=== PATIENT | female | born 1985 | race Caucasian/White ===

== ENCOUNTER 2018-01-25 21:49 | Emergency (ER) | payer MEDICAID ==
[2018-01-25] MEDS ORDERED: IBUPROFEN 600 MG TABLET PO ONE (22:15)
--- NOTE | 2018-01-25 22:20 | Emergency Department Record ---
History of Present Illness - General Chief complaint: Lower Extremity Pain Stated complaint: RT WRIST PAIN Time Seen by Provider: 01/25/18 22:14 Source: Patient Mode of Arrival: Ambulatory Limitations: No limitations - History of Present Illness Initial comments: 32 yo female presents to ED for evaluation of right wrist pain this evening as she "slammed her wrist down" on a hard surface. Patient reports pain, denies weakness, numbness, or tingling. Patient denies other injury, and denies health problems. MD Complaint: Joint pain Onset/Timin -: Minutes(s) Location: Right, Hand, Other History of Same: No Radiation: None Severity scale (1-10): 10 Quality: Aching Consistency: Constant Improves with: Nothing Worsens with: Exertion, Palpation Associated Symptoms: Denies other symptoms - Related Data Home Medications Medication Instructions Recorded Confirmed Last Taken No Home Med [NO HOME MEDS] 01/25/18 01/25/18 Unknown Allergies Allergy/AdvReac Type Severity Reaction Status Date / Time No Known Drug Allergies Allergy Verified 01/25/18 22:07 Travel Screening - Travel/Exposure Within Last 30 Days Have you traveled within the last 30 days?: No - Travel/Exposure Within Last Year Have you traveled outside the [place] in the last year?: No - Additonal Travel Details Have you been exposed to anyone with a communicable illness?: No - Travel Symptoms Symptom Screening: None Review of Systems Constitutional: Denies: Chills, Fever, Malaise, Night sweats Eyes: Denies: Eye discharge, Eye pain ENT: Denies: Congestion, Ear pain, Epistaxis Respiratory: Denies: Cough, Dyspnea Cardiovascular: Denies: Chest pain, Dyspnea on exertion Endocrine: Denies: Fatigue, Heat or cold intolerance Gastrointestinal: Denies: Abdominal pain, Nausea, Vomiting Genitourinary: Denies: Incontinence, Retention Musculoskeletal: Reports: Arthralgia, Joint swelling (Right wrist swelling). Denies: Back pain, Gout Skin: Denies: Bruising, Change in color Neurological: Denies: Abnormal gait, Confusion, Headache, Seizure Psychiatric: Denies: Anxiety Hematological/Lymphatic: Denies: Anemia, Blood Clots Past Medical History - SOCIAL HISTORY Smoking Status: Current every day smoker Alcohol Use: Occasional Drug Use: None - RESPIRATORY Hx Respiratory Disorders: No - CARDIOVASCULAR Hx Cardio Disorders: No - NEURO Hx Neuro Disorders: No - GI Hx GI Disorders: No - Hx Genitourinary Disorders: Yes Comment:: Bartholin cysts - ENDOCRINE Hx Endocrine Disorders: No - MUSCULOSKELETAL Hx Musculoskeletal Disorders: Yes Hx Back Injury: Yes - PSYCH Hx Psych Problems: No - HEMATOLOGY/ONCOLOGY Hx Hematology/Oncology Disorders: No Family Medical History Any Significant Family History?: No Hx Diabetes: Grandparents Hx Heart Disease: Mother, Grandparents Hx HTN: Grandparents Hx Kidney Disease: Mother Hx Stroke: Grandparents Physical Exam - General General Appearance: Alert, Oriented x3, Cooperative, Moderate distress Limitations: No limitations - Head Head exam: Atraumatic, Normocephalic, Normal inspection Head exam detail: negative: Abrasion, Contusion, Buenrostro's sign, General tenderness, Hematoma, Laceration - Eye Eye exam: Normal appearance. negative: Conjunctival injection, Periorbital swelling, Periorbital tenderness, Scleral icterus - ENT Ear exam: negative: Auricular hematoma, Auricular trauma Nasal Exam: negative: Active bleeding, Discharge, Dried blood, Foreign body Mouth exam: negative: Drooling, Laceration, Muffled voice, Tongue elevation - Neck Neck exam: Normal inspection. negative: Meningismus, Tenderness - Respiratory Respiratory exam: Normal lung sounds bilaterally. negative: Rales, Respiratory distress, Rhonchi, Stridor - Cardiovascular Cardiovascular Exam: Regular rate, Normal rhythm, Normal heart sounds Peripheral Pulses: 3+: Radial (R) - GI/Abdominal GI/Abdominal exam: Soft. negative: Rebound, Rigid, Tenderness - Rectal Rectal exam: Deferred - exam: Deferred - Extremities Extremities exam: Tenderness, Other (TTP with mild STS to the lateral right wrist, decreased ROM due to pain. Compartments of the forearm are soft on examination. FROM of the fingers distally.). negative: Calf tenderness, Pedal edema - Back Back exam: Denies: CVA tenderness (R), CVA tenderness (L) - Neurological Neurological exam: Alert, Normal gait, Oriented X3 - Psychiatric Psychiatric exam: Normal affect, Normal mood - Skin Skin exam: Normal color. negative: Abrasion Type of lesion: negative: abrasion Course Vital Signs 01/25/18 22:07 Pulse Rate 97 H Respiratory 20 Rate Blood Pressure 129/91 Pulse Ox 97 - Reevaluation(s) Reevaluation #1: 01/25/18 23:03 Right wrist: No fracture identified Patient was updated on her radiology result, findings appear c/w contusion to the right hand. Disposition Disposition: Discharge Clinical Impression: Contusion, hand Qualifiers: Encounter type: initial encounter Laterality: right Qualified Code(s): S60.221A - Contusion of right hand, initial encounter Disposition: Home, Self-Care Condition: (2) Stable Instructions: Contusion in Adults (ED) Additional Instructions: Return to ED if your symptoms worsen or if you have any concerns. Ice, Ibuprofen as directed. Follow-up with your family doctor in 3-5 days as directed. Forms: Patient Portal Access Time of Disposition: 23:06 Quality - Quality Measures Quality Measures: N/A - Blood Pressure Screening Does Patient Have Any of the Following: No Blood Pressure Classification: Hypertensive Reading Systolic Measurement: 129 Diastolic Measurement: 91 Screening for High Blood Pressure: < First Hypertensive BP, F/U Documented > [ G8950] First Hypertensive Follow-up Interventions: Referral to alternative/primary care provider.
--- NOTE | 2018-01-29 10:54 | RADIOLOGY REPORT ---
EXAM: RIGHT HAND HISTORY: SLAMMED HAND ON TABLE TODAY WITH PAIN ACROSS RIGHT HAND AND WRIST. TECHNIQUE: Three views of the right hand were obtained. Comparison: None. Encounter: Initial. FINDINGS: No definite fracture of the right hand identified. No dislocation is seen. No prominent focal soft tissue swelling evident. IMPRESSION: NO FRACTURE OF THE RIGHT HAND IDENTIFIED. JOB NUMBER: [id number] MTDD
--- NOTE | 2018-01-29 11:02 | RADIOLOGY REPORT ---
EXAM: RIGHT WRIST HISTORY: PATIENT SLAMMED HAND AND WRIST ON TABLE WITH PAIN ACROSS RIGHT HAND AND WRIST. TECHNIQUE: Four views of the right wrist were obtained. Comparison: Right wrist series dated 12/08/13. Encounter: Initial. FINDINGS: The right wrist appears intact with no definite fracture or dislocation seen. There does appear to be some soft tissue swelling along the ulnar aspect of the wrist. If wrist symptoms persist, a follow-up study in 10- 14 days time would be suggested to exclude a current radiographically occult fracture. In addition, there is a suggestion of a faint foreign body about 4 mm in length projecting in the soft tissues between the third and fourth metacarpals. In retrospect a similar density is seen in the right hand x-ray from today as well , projected over the head of the fourth metacarpal on the AP view and probably projected over the distal metaphysis of the third metacarpal on the oblique view. It is not clearly seen on the lateral view. This could be some faint foreign body in the hand or possibly even some debris along the skin surface and clinical correlation is suggested. IMPRESSION: 1. NO FRACTURE OF THE WRIST IDENTIFIED. 2. ON THE AP VIEW IN PARTICULAR THERE IS A FAINT LINEAR DENSITY ABOUT 4 MM IN SIZE PROJECTING IN THE SOFT TISSUES BETWEEN THE SHAFTS OF THE THIRD AND FOURTH METACARPAL IN RETROSPECT THIS IS PROBABLY PRESENT ON THE AP AND OBLIQUE VIEW ON THE RIGHT HAND SERIES WELL AND CLINICAL CORRELATION TO A POSSIBLE FOREIGN BODY IN THE SOFT TISSUES IN THIS LOCATION OF THE HAND SUGGESTED. JOB NUMBER: [id number] MTDD
== END 2018-01-25 23:14 | disposition home or self-care (01) ==
LOC: ER 21:49
DX: S60.221A Contusion of right hand, initial encounter (principal); M25.531 Pain in right wrist; F17.210 Nicotine dependence, cigarettes, uncomplicated; W22.8XXA Striking against or struck by other objects, initial encounter
CPT/HCPCS: 99283

== ENCOUNTER 2018-08-11 22:23 | Emergency (ER) | payer MEDICAID ==
[2018-08-11] MEDS ORDERED: ACETAMINOPHEN 325 MG TAB PO ONE (22:39)
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
[2018-08-11 23:11] LABS: BASO % 0.3 % (0-6); GRAN % 68.3 % (47-80); HEMATOCRIT 41.6 % (35.0-47.0); HEMOGLOBIN 13.8 gm/dl (11.6-16.0); MEAN CORPUSCULAR HEMOGLOBIN 28.9 pg (27-33); MEAN CORPUSCULAR HGB CONC 33.2 g/dl (32-36); MEAN PLATELET VOLUME 9.3 fl (7.4-10.4); MONO % 6.4 % (0-9); PLATELET COUNT 241 K/uL (130-400); RED BLOOD COUNT 4.78 M/uL (3.80-5.40); RED CELL DISTRIBUTION WIDTH 14.7 % (11.5-14.5); WHITE BLOOD COUNT W/O DIFF 10.6 K/uL (4.2-12.2)
[2018-08-11 23:13] LABS: AMPHETAMINE SCREEN URINE NOT DETECTED; BARBITURATE SCREEN URINE NOT DETECTED; BENZODIAZEPINE SCREEN URINE NOT DETECTED; COCAINE SCREEN URINE NOT DETECTED; METHADONE SCREEN URINE NOT DETECTED; METHAMPHETAMINE SCREEN NOT DETECTED; OPIATE SCREEN URINE NOT DETECTED; OXYCODONE SCREEN URINE NOT DETECTED; PHENCYCLIDINE SCREEN URINE NOT DETECTED; PROPOXYPHENE SCREEN URINE NOT DETECTED; THC SCREEN URINE NOT DETECTED; TRICYCLIC ANTIDEPRESSANT SCRN NOT DETECTED
[2018-08-11 23:20] LABS: BLOOD UREA NITROGEN 14 mg/dL (6-20)
[2018-08-11 23:21] LABS: BILIRUBIN,TOTAL < 0.20 mg/dL (0.2-1.0); CREATININE 0.6 mg/dL (0.5-0.9); EST GLOMERULAR FILTRATION RATE > 60 mL/min; TOTAL PROTEIN 6.8 g/dL (6.6-8.7)
[2018-08-11 23:23] LABS: GLUCOSE,RANDOM 97 mg/dL (74-109)
[2018-08-11 23:26] LABS: ACETAMINOPHEN < 5.0 ug/mL (10.0-30.0); ALB/GLOB RATIO 1.5 (1.1-1.8); ALBUMIN 4.1 g/dL (4.0-5.0); ALKALINE PHOSPHATASE 67 U/L (35-104); ALT/SGPT 15 U/L (<33); AST/SGOT 15 U/L (10.0-35.0); SALICYLATE < 0.3 mg/dL (2.8-20)
--- NOTE | 2018-08-13 12:08 | RADIOLOGY REPORT ---
EXAM: CHEST, TWO VIEWS HISTORY: CHEST PAIN. TECHNIQUE: Two views of the chest were obtained. Comparison: None. FINDINGS: The cardiac silhouette is within normal size limits. No focal pulmonary consolidation. No pleural effusion or pneumothorax. IMPRESSION: NO ACUTE LUNG FINDINGS. JOB NUMBER: [id number] MTDD
--- NOTE | 2018-08-19 07:20 | Emergency Department Record ---
History of Present Illness - General Chief Complaint: Back Pain/Injury Stated Complaint: BACK PAIN/INJURY Time Seen by Provider: 08/11/18 22:39 Source: Patient Limitations: No limitations - History of Present Illness Onset/Timin -: Hour(s) Similar Symptoms Previously: Yes Place: Home Radiation: None Severity scale (1-10): 10 Quality: Stabbing Consistency: Constant Improves With: Supine Worsens With: Sitting upright Context: Bending, Fall, Turning/twisting Associated Symptoms: Denies other symptoms - Related Data Allergies Allergy/AdvReac Type Severity Reaction Status Date / Time No Known Drug Allergies Allergy Verified 08/11/18 22:40 Travel Screening - Travel/Exposure Within Last 30 Days Have you traveled within the last 30 days?: No - Travel/Exposure Within Last Year Have you traveled outside the [place] in the last year?: No - Additonal Travel Details Have you been exposed to anyone with a communicable illness?: No - Travel Symptoms Symptom Screening: None Review of Systems Constitutional: Denies: Chills, Fever Eyes: Denies: Eye discharge ENT: Denies: Congestion Respiratory: Denies: Cough, Dyspnea Past Medical History - SOCIAL HISTORY Smoking Status: Current every day smoker Drug Use: None - RESPIRATORY Hx Respiratory Disorders: No - CARDIOVASCULAR Hx Cardio Disorders: No - NEURO Hx Neuro Disorders: No - GI Hx GI Disorders: No - Hx Genitourinary Disorders: Yes Comment:: Bartholin cysts - ENDOCRINE Hx Endocrine Disorders: No - MUSCULOSKELETAL Hx Musculoskeletal Disorders: Yes Hx Back Injury: Yes - PSYCH Hx Psych Problems: No - HEMATOLOGY/ONCOLOGY Hx Hematology/Oncology Disorders: No Family Medical History Hx Diabetes: Grandparents Hx Heart Disease: Mother, Grandparents Hx HTN: Grandparents Hx Kidney Disease: Mother Hx Stroke: Grandparents Physical Exam - General Limitations: No limitations Course Vital Signs 08/11/18 08/11/18 22:34 23:37 Temperature 98.5 F Pulse Rate [ 103 H 70 Pulse Ox Probe] Respiratory 24 20 Rate Blood Pressure 129/89 [Left Arm] Blood Pressure 119/75 [Right Arm] Pulse Ox 97 99 Medical Decision Making - Lab Data Result diagrams: 08/11/18 23:03 08/11/18 23:03 Lab Results 08/11/18 08/11/18 08/11/18 Range/Units 23:03 23:03 23:03 WBC 10.6 (4.2-12.2) K/uL RBC 4.78 (3.80-5.40) M/uL Hgb 13.8 (11.6-16.0) gm/dl Hct 41.6 (35.0-47.0) % MCV 87.0 (81-97) fl MCH 28.9 (27-33) pg MCHC 33.2 (32-36) g/dl RDW 14.7 H (11.5-14.5) % Plt Count 241 (130-400) K/uL MPV 9.3 (7.4-10.4) fl Gran % 68.3 (47-80) % Lymphocytes % 24.0 (16-45) % Monocytes % 6.4 (0-9) % Eosinophils % 1.0 (0-6) % Basophils % 0.3 (0-6) % Sodium 140 (136-145) mmol/L Potassium 3.9 (3.4-4.5) mmol/L Chloride 106 (98-107) mmol/L Carbon Dioxide 24.0 (22-29) mmol/L Anion Gap 10.0 (7-16) BUN 14 (6-20) mg/dL Creatinine 0.6 (0.5-0.9) mg/dL Estimated GFR > 60 mL/min Random Glucose 97 (74-109) mg/dL Calcium 9.0 (8.6-10.0) mg/dL Total Bilirubin < 0.20 L (0.2-1.0) mg/dL AST 15 (10.0-35.0) U/L ALT 15 (<33) U/L Alkaline Phosphatase 67 (35-104) U/L Total Protein 6.8 (6.6-8.7) g/dL Albumin 4.1 (4.0-5.0) g/dL Globulin 2.7 (1.4-4.8) gm/dL Albumin/Globulin Ratio 1.5 (1.1-1.8) TSH (0.270-4.20) uIU/mL Serum HCG, Qual (NEGATIVE) Salicylates < 0.3 L (2.8-20) mg/dL Urine Opiates Screen Not detected Ur Oxycodone Screen Not detected Urine Methadone Screen Not detected Ur Propoxyphene Screen Not detected Acetaminophen < 5.0 L (10.0-30.0) ug/mL Ur Barbituates Screen Not detected Ur Tricyclics Screen Not detected Ur Phencyclidine Scrn Not detected Ur Amphetamine Screen Not detected U Methamphetamines Scrn Not detected U Benzodiazepines Scrn Not detected Urine Cocaine Screen Not detected Urine Cannabis Screen Not detected Ethyl Alcohol 0.010 (0-0.010) g/dL 08/11/18 08/11/18 Range/Units 23:03 23:03 WBC (4.2-12.2) K/uL RBC (3.80-5.40) M/uL Hgb (11.6-16.0) gm/dl Hct (35.0-47.0) % MCV (81-97) fl MCH (27-33) pg MCHC (32-36) g/dl RDW (11.5-14.5) % Plt Count (130-400) K/uL MPV (7.4-10.4) fl Gran % (47-80) % Lymphocytes % (16-45) % Monocytes % (0-9) % Eosinophils % (0-6) % Basophils % (0-6) % Sodium (136-145) mmol/L Potassium (3.4-4.5) mmol/L Chloride (98-107) mmol/L Carbon Dioxide (22-29) mmol/L Anion Gap (7-16) BUN (6-20) mg/dL Creatinine (0.5-0.9) mg/dL Estimated GFR mL/min Random Glucose (74-109) mg/dL Calcium (8.6-10.0) mg/dL Total Bilirubin (0.2-1.0) mg/dL AST (10.0-35.0) U/L ALT (<33) U/L Alkaline Phosphatase (35-104) U/L Total Protein (6.6-8.7) g/dL Albumin (4.0-5.0) g/dL Globulin (1.4-4.8) gm/dL Albumin/Globulin Ratio (1.1-1.8) TSH 1.52 (0.270-4.20) uIU/mL Serum HCG, Qual Negative (NEGATIVE) Salicylates (2.8-20) mg/dL Urine Opiates Screen Ur Oxycodone Screen Urine Methadone Screen Ur Propoxyphene Screen Acetaminophen (10.0-30.0) ug/mL Ur Barbituates Screen Ur Tricyclics Screen Ur Phencyclidine Scrn Ur Amphetamine Screen U Methamphetamines Scrn U Benzodiazepines Scrn Urine Cocaine Screen Urine Cannabis Screen Ethyl Alcohol (0-0.010) g/dL Disposition Disposition: Transfer Clinical Impression: Suicidal ideation Disposition: Psychiatric Hospital Transfer To: [facility] Reason For Transfer: Psych Accepting Physician: Dr. Simental Time Discussed w/Accepting Physician: 10:00 Condition: (1) Good Forms: Patient Portal Access Time of Disposition: 07:19 Quality - Quality Measures Quality Measures: N/A - Blood Pressure Screening View Details: Yes Does Patient Have Any of the Following: No Blood Pressure Classification: Normal BP Reading Systolic Measurement: 119 Diastolic Measurement: 75 Screening for High Blood Pressure: < Normal BP, F/U Not Required > [G8783]
== END 2018-08-12 01:39 ==
LOC: ER 22:23
DX: R45.851 Suicidal ideations (principal); F06.2 Psychotic disorder with delusions due to known physiological condition; M54.6 Pain in thoracic spine; M25.512 Pain in left shoulder; R07.9 Chest pain, unspecified; F17.210 Nicotine dependence, cigarettes, uncomplicated
CPT/HCPCS: 99285 ×2; 85025; 80053; 84443; 84703; 80305; 71046; G0480 ×3; 80320; 80329

== ENCOUNTER 2018-08-21 00:05 | Emergency (ER) | payer MEDICAID ==
[2018-08-21] MEDS ORDERED: LORAZEPAM 0.5 MG TABLET PO ONE (00:14)
[2018-08-21] MEDS ORDERED: ALPRAZOLAM 0.25 MG TABLET PO ONE (00:18)
--- NOTE | 2018-08-21 00:25 | Emergency Department Record ---
Anxiety - General Chief Complaint: Allergic Reaction Stated Complaint: ALLERGIC REACTION Time Seen by Provider: 08/21/18 00:07 Source: Patient, Family Mode of Arrival: Ambulatory Limitations: No limitations - History of Present Illness Initial Comments: 33 yo female presents feeling anxious about her new medications that she started taking the last 2-3 days. She was admitted to [facility]. The two medications are oxcarbazepine and trazadone. She states when she takes them she feels anxiety. She felt relaxed and normal all day. No hives, rash, itching. No confusion, no hallucinations, no sweating, no diarrhea, no fever, no nausea, no abnormal muscle movements. She states she has an additional anxiety medication that has not been filled yet. She feels improved after the psychiatric inpatient stay but she has anxiety about her new medications. She expressed that the inpatient stay was very positive and helped her with coping mechanisms. Her significant other in the ED with her supports this as well. Her PCP is Dr Billings. She has outpatient follow up at [facility] in [place]. She would like to discuss with them her medications with her PCP tomorrow. Complaint: Anxiety -: Days(s) Place: Home Previous History of Same: No Severity: Moderate Quality: Intermittant (When she take the medications) Provoking factors: Emotional stress Improves With: Nothing Worsens With: Medication Associated symptoms: Other (Dry mouth) - Related Data Home Medications: Home Medications Medication Instructions Recorded Confirmed Last Taken Oxcarbazepine [Trileptal] 150 mg PO BID 08/21/18 08/21/18 Unknown Trazodone HCl 150 mg PO QHS 08/21/18 08/21/18 Unknown Allergies/Adverse Reactions: Allergies Allergy/AdvReac Type Severity Reaction Status Date / Time No Known Drug Allergies Allergy Verified 08/11/18 22:40 Review of Systems Constitutional: Denies: Chills, Fever, Malaise, Night sweats, Weakness Eyes: Denies: Eye discharge, Eye pain, Photophobia, Vision change ENT: Reports: Other. Denies: Congestion, Throat pain Respiratory: Denies: Cough, Dyspnea Cardiovascular: Reports: Palpitations. Denies: Chest pain, Dyspnea on exertion , Edema, Syncope Endocrine: Denies: Fatigue, Heat or cold intolerance Gastrointestinal: Reports: Constipation. Denies: Abdominal pain, Diarrhea, Nausea, Vomiting Genitourinary: Denies: Dysuria Musculoskeletal: Denies: Arthralgia, Back pain, Neck pain Skin: Denies: Bruising, Change in color, Rash Neurological: Reports: Tingling (finger tips). Denies: Abnormal gait, Confusion , Headache, Numbness, Seizure, Tremors, Vertigo, Weakness Psychiatric: Reports: Anxiety Hematological/Lymphatic: Denies: Swollen glands Past Medical History - SOCIAL HISTORY Smoking Status: Current every day smoker Drug Use: None - RESPIRATORY Hx Respiratory Disorders: No - CARDIOVASCULAR Hx Cardio Disorders: No - NEURO Hx Neuro Disorders: No - GI Hx GI Disorders: No - Hx Genitourinary Disorders: Yes Comment:: Bartholin cysts - ENDOCRINE Hx Endocrine Disorders: No - MUSCULOSKELETAL Hx Musculoskeletal Disorders: Yes Hx Back Injury: Yes - PSYCH Hx Psych Problems: No - HEMATOLOGY/ONCOLOGY Hx Hematology/Oncology Disorders: No Family Medical History Hx Diabetes: Grandparents Hx Heart Disease: Mother, Grandparents Hx HTN: Grandparents Hx Kidney Disease: Mother Hx Stroke: Grandparents Physical Exam - General General Appearance: Alert, Oriented x3, Cooperative, No acute distress Limitations: No limitations - Head Head exam: Atraumatic, Normal inspection - Eye Eye exam: Normal appearance, PERRL. negative: Conjunctival injection, Scleral icterus - ENT ENT exam: Normal exam, Mucous membranes moist Ear exam: Normal external inspection Nasal Exam: Normal inspection Mouth exam: Normal external inspection Teeth exam: Normal inspection Throat exam: Normal inspection. negative: Tonsillar erythema, Tonsillomegaly, Tonsillar exudate, R peritonsillar mass, L peritonsillar mass - Neck Neck exam: Normal inspection - Respiratory Respiratory exam: Normal lung sounds bilaterally. negative: Rhonchi, Stridor, Wheezes - Cardiovascular Cardiovascular Exam: Normal rhythm, Normal heart sounds, Tachycardia Peripheral Pulses: 2+: Radial (R), Radial (L) - GI/Abdominal GI/Abdominal exam: Soft, Normal bowel sounds. negative: Hyperactive bowel sounds, Tenderness - Rectal Rectal exam: Deferred - exam: Deferred - Extremities Extremities exam: Normal inspection. negative: Tenderness - Back Back exam: Denies: CVA tenderness (R), CVA tenderness (L) - Neurological Neurological exam: Alert, CN II-XII intact, Normal gait, Oriented X3, Reflexes normal (No hyperreflexia She is +1 patellar bilateral and +1 biceps. No clonus ), Other (No clonus, no hyperreflexia, ). negative: Abnormal gait, Altered, Motor sensory deficit - Psychiatric Psychiatric exam: Anxious, Normal affect, Other (Easily calms and conversational. She expressed that she had a positive inpatient experience at [place] and feels better equipped to deal with her stresses). negative: Agitated, Flat affect, Homicidal ideation, Manic, Suicidal ideation - Skin Skin exam: Dry, Intact, Normal color, Warm. negative: Diaphoretic (No sweating) , Mottled Course Vital Signs 08/21/18 00:10 Temperature 97.4 F L Pulse Rate [ 120 H Left] Respiratory 20 Rate Blood Pressure 154/82 [Left Arm] Pulse Ox 100 - Reevaluation(s) Reevaluation #1: The patient is feeling better already. Her anxiety level is greatly improved. Her HR is 94 on recheck. 08/21/18 00:50 No sweating, no diarrhea (actually constipated), no fever, no dilated pupils, no altered mental status, no tremor. She is anxious but quickly calmed with the low dose Xanax. I do not believe this is serotonin syndrome at this time. 08/21/18 00:55 We discussed that she should call her PCP to be seen tomorrow to discuss her new medications We discussed at length reasons to return to the ED as well for a recheck if any of the symptoms return 08/21/18 01:16 The patient is very relaxed. She is ready for DC Disposition Disposition: Discharge Clinical Impression: Anxiety reaction Disposition: Home, Self-Care Condition: (1) Good Instructions: Anxiety (ED) Additional Instructions: Call your doctors tomorrow to discuss your recent admission to the hospital and your new medications Immediately return to the emergency department if the feeling of being anxious returns, any sweating, nausea, vomiting, diarrhea, or concerns Forms: Patient Portal Access Time of Disposition: 01:05 Quality - Quality Measures Quality Measures: N/A - Blood Pressure Screening Does Patient Have Any of the Following: No Blood Pressure Classification: Pre-Hypertensive BP Reading Systolic Measurement: 154 Diastolic Measurement: 82 Screening for High Blood Pressure: < Pre-Hypertensive BP, F/U Documented > [ G8950] Pre-Hypertensive Follow-up Interventions: Referral to alternative/primary care provider.
== END 2018-08-21 01:21 | disposition home or self-care (01) ==
LOC: ER 00:05
DX: F41.1 Generalized anxiety disorder (principal); F43.0 Acute stress reaction; F17.210 Nicotine dependence, cigarettes, uncomplicated
CPT/HCPCS: 99283

== ENCOUNTER 2018-10-03 22:18 | Emergency (ER) | payer MEDICAID ==
[2018-10-03] MEDS ORDERED: KETOROLAC 30 MG/ML VIAL IM ONE (22:30)
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
--- NOTE | 2018-10-06 16:46 | RADIOLOGY REPORT ---
EXAM: ANKLE LEFT 3 VIEWS HISTORY: LEFT ANKLE PAIN. TECHNIQUE: Three views. COMPARISON: 11/01/2012. FINDINGS: No acute bone or joint abnormality. No fracture is seen. Subtle contour deformity involving the medial portion of the talar dome and best seen on the mortise view is again identified, unchanged. IMPRESSION: 4 MM OSTEOCHONDRAL DEFECT INVOLVING THE MEDIAL TALAR DOME SIMILAR TO THE PREVIOUS STUDY. NO NEW ABNORMALITY. JOB NUMBER: [id number] MTDD
== END 2018-10-03 23:25 | disposition home or self-care (01) ==
LOC: ER 22:18
DX: S93.402A Sprain of unspecified ligament of left ankle, initial encounter (principal); X50.0XXA Overexertion from strenuous movement or load, initial encounter; Y92.007 Garden or yard of unspecified non-institutional (private) residence as the place of occurrence of the external cause; F17.210 Nicotine dependence, cigarettes, uncomplicated
CPT/HCPCS: 99283; 96372; 99284; 73610; J1885

== ENCOUNTER 2019-06-30 18:17 | Emergency (ER) | payer MEDICAID ==
--- NOTE | 2019-06-30 18:28 | Emergency Department Record ---
History of Present Illness - General Chief Complaint: General Stated Complaint: DRY MOUTH,RACING HEART Time Seen by Provider: 06/30/19 18:18 Source: Patient Mode of Arrival: Ambulatory Limitations: No limitations - History of Present Illness Initial comments: 33 yo female presents to ED for evaluation of possible dehydration. Patient reports "dry mouth, and it feels like my heart is racing". Patient reports that she ate dinner normally this evening [employer], reports that she is "drinking a lot of water" and is concerned. Patient denies nausea, vomiting, or loose stools. Patient denies urinary symptoms or history of DM. Patient denies health proble ms at her baseline. Onset/Timin -: Days(s) Consistency: Constant Improves with: None Worsens with: None Associated Symptoms: Denies other symptoms - Gila Coma Scale Eye Response: (4) Open spontaneously Motor Response: (6) Obeys commands Verbal Response: (5) Oriented Gila Total: 15 - Related Data Home Medications Medication Instructions Recorded Confirmed Last Taken Aripiprazole 10 mg PO DAILY 06/30/19 06/30/19 Unknown Allergies Allergy/AdvReac Type Severity Reaction Status Date / Time No Known Drug Allergies Allergy Verified 08/11/18 22:40 Travel/Exposure Screening - Travel/Exposure Within Last 30 Days Have you traveled within the last 30 days?: No - Additonal Travel/Exposure Details Have you been exposed to anyone with a communicable illness?: No Review of Systems Constitutional: Denies: Chills, Fever, Malaise Eyes: Denies: Eye discharge, Eye pain ENT: Denies: Congestion, Ear pain Respiratory: Denies: Cough, Dyspnea Cardiovascular: Reports: Palpitations. Denies: Chest pain, Dyspnea on exertion Endocrine: Denies: Fatigue, Heat or cold intolerance Gastrointestinal: Denies: Abdominal pain, Constipation, Diarrhea, Nausea, Vomi ting Genitourinary: Denies: Incontinence, Retention Musculoskeletal: Denies: Arthralgia, Back pain Skin: Denies: Bruising, Change in color Neurological: Denies: Abnormal gait, Confusion, Headache, Tingling, Tremors Psychiatric: Denies: Anxiety Hematological/Lymphatic: Denies: Anemia, Blood Clots Past Medical History - SOCIAL HISTORY Smoking Status: Current every day smoker - RESPIRATORY Hx Respiratory Disorders: No - CARDIOVASCULAR Hx Cardio Disorders: No - NEURO Hx Neuro Disorders: No - GI Hx GI Disorders: No - Hx Genitourinary Disorders: Yes Comment:: Bartholin cysts - ENDOCRINE Hx Endocrine Disorders: No - MUSCULOSKELETAL Hx Musculoskeletal Disorders: Yes Hx Back Injury: Yes - PSYCH Hx Psych Problems: No - HEMATOLOGY/ONCOLOGY Hx Hematology/Oncology Disorders: No Family Medical History Any Significant Family History?: Yes Hx Diabetes: Grandparents Hx Heart Disease: Mother, Grandparents Hx HTN: Grandparents Hx Kidney Disease: Mother Hx Stroke: Grandparents Physical Exam - General General Appearance: Alert, Oriented x3, Cooperative, No acute distress, Anxious Limitations: No limitations - Head Head exam: Atraumatic, Normocephalic, Normal inspection Head exam detail: negative: Abrasion, Contusion, Buenrostro's sign, General tenderness, Hematoma, Laceration - Eye Eye exam: Normal appearance. negative: Conjunctival injection, Periorbital swelling, Periorbital tenderness, Scleral icterus - ENT Ear exam: negative: Auricular hematoma, Auricular trauma Nasal Exam: negative: Active bleeding, Discharge, Dried blood, Foreign body Mouth exam: negative: Drooling, Laceration, Muffled voice, Tongue elevation - Neck Neck exam: Normal inspection. negative: Meningismus, Tenderness - Respiratory Respiratory exam: Normal lung sounds bilaterally. negative: Respiratory distress, Rhonchi, Stridor, Wheezes - Cardiovascular Cardiovascular Exam: Regular rate, Normal rhythm, Normal heart sounds - GI/Abdominal GI/Abdominal exam: Soft. negative: Distended, Rebound, Rigid, Tenderness - Rectal Rectal exam: Deferred - exam: Deferred - Extremities Extremities exam: Normal inspection. negative: Pedal edema, Tenderness - Back Back exam: Denies: CVA tenderness (R), CVA tenderness (L) - Neurological Neurological exam: Alert, Normal gait, Oriented X3 - Psychiatric Psychiatric exam: Normal affect, Normal mood - Skin Skin exam: Normal color. negative: Abrasion Type of lesion: negative: abrasion Course Vital Signs 06/30/19 18:20 Temperature 98.6 F Pulse Rate 103 H Respiratory 20 Rate Blood Pressure 143/82 Pulse Ox 99 - Reevaluation(s) Reevaluation #1: 06/30/19 18:36 EKG: Sinus tachycardia 115 Normal axis, normal intervals No acute ST-T wave changes are present Reevaluation #2: 06/30/19 19:01 Laboratory studies were reviewed and appear grossly unremarkable for an acute process except for the following: WBC 13.8 UA was reviewed and appears contaminated (16-20 epithelial cells). Reevaluation #3: 06/30/19 20:06 Patient was reassessed, pulse improved to 93 from 115. Patient reports that she is feeling much better. Discussed UA results with the patient, patient denies urinary symptoms, and findings do not appear c/w acute cystitis. Patient appears stable for discharge at this time with instructions to follow-up in 3-5 days as directed. Medical Decision Making - Lab Data Result diagrams: 06/30/19 18:30 06/30/19 18:30 Disposition Disposition: Discharge Clinical Impression: Palpitations Disposition: Home, Self-Care Condition: (2) Stable Instructions: Heart Palpitations (ED) Additional Instructions: Return to ED if your symptoms worsen or if you have any concerns. Drink plenty of fluids, rest. Follow-up with your family doctor in 3-5 days as directed. Forms: Patient Portal Access Time of Disposition: 20:09 Quality - Quality Measures Quality Measures: N/A - Blood Pressure Screening Does Patient Have Any of the Following: No Blood Pressure Classification: Pre-Hypertensive BP Reading Systolic Measurement: 143 Diastolic Measurement: 82 Screening for High Blood Pressure: < Pre-Hypertensive BP, F/U Documented > [G8950] Pre-Hypertensive Follow-up Interventions: Referral to alternative/primary care provider.
[2019-06-30] MEDS ORDERED: 0.9 % SODIUM CHLORIDE 1000ML 1,000 ML IV SCH (18:30)
[2019-06-30 18:44] LABS: ABSOLUTE NEUTROPHIL COUNT 10.34; BASO % 0.2 % (0-6); EOS % 0.4 % (0-6); GRAN % 74.9 % (47-80); HEMATOCRIT 46.2 % (35.0-47.0); HEMOGLOBIN 15.1 gm/dl (11.6-16.0); LYMPH % 20.4 % (16-45); MEAN CELL VOLUME 86.7 fl (81-97); MEAN CORPUSCULAR HEMOGLOBIN 28.3 pg (27-33); MEAN CORPUSCULAR HGB CONC 32.7 g/dl (32-36); MEAN PLATELET VOLUME 9.1 fl (7.4-10.4); MONO % 4.1 % (0-9); PLATELET COUNT 247 K/uL (130-400); RED BLOOD COUNT 5.33 M/uL (3.80-5.40); RED CELL DISTRIBUTION WIDTH 14.3 % (11.5-14.5); URINE APPEARANCE SL CLOUDY; URINE BILIRUBIN NEGATIVE (NEGATIVE); URINE BLOOD TRACE-I (NEGATIVE); URINE COLOR YELLOW; URINE GLUCOSE (UA) NEGATIVE (NEGATIVE); URINE KETONE NEGATIVE (NEGATIVE); URINE LEUKOCYTE ESTERASE TRACE (NEGATIVE); URINE NITRITE NEGATIVE (NEGATIVE); URINE PROTEIN NEGATIVE (NEGATIVE); URINE UROBILINOGEN 0.2 E.U./dL (0.20 - 1.00); WHITE BLOOD COUNT W/O DIFF 13.8 K/uL (4.2-12.2)
[2019-06-30 18:51] LABS: URINE RBC 0 - 2 (NONE SEEN); URINE WBC 0 - 2 (0-2/hpf)
[2019-06-30 18:52] LABS: URINE BACTERIA 4+; URINE EPITHELIAL CELLS 16 - 20 (FEW)
[2019-06-30 18:55] LABS: BLOOD UREA NITROGEN 5 mg/dL (6-20); CREATININE 0.5 mg/dL (0.5-0.9); EST GLOMERULAR FILTRATION RATE > 60 mL/min
[2019-06-30 18:58] LABS: GLUCOSE,RANDOM 113 mg/dL (74-109)
== END 2019-06-30 20:16 | disposition home or self-care (01) ==
LOC: ER 18:17
DX: R00.2 Palpitations (principal); F17.210 Nicotine dependence, cigarettes, uncomplicated
CPT/HCPCS: 80048; 81001; 85025; 93005; 93010; 99284; J7030